=== PATIENT | female | born 1985 | race Caucasian/White ===

== ENCOUNTER 2016-10-18 19:49 | Emergency (ER) | payer SELFPAY ==
[~2016-10-18] VITALS: Ht 165.1 cm; Wt 72.6 kg
[2016-10-18 19:58] VITALS: BP 114/72
[2016-10-18] MEDS ORDERED: silver sulfADIAZINE 1% CREAM 25GM TUBE. TP ONE ×2 (20:11→20:15)
[2016-10-18] MEDS ORDERED: DIPHTH,PERTUSS(ACELL),TET TOX 0.5 ML DISP.SYRIN. VAX IM ONE ×2 (20:12→20:15)
[2016-10-18] MEDS ORDERED: HYDROcodone/APAP 5/325MG 1 TAB TABLET ONE (20:13)
[2016-10-18] MEDS: HYDROcodone/APAP 5/325MG 1 TAB TABLET PO ONE ×2 (20:15→20:20)
[2016-10-18] MEDS ORDERED: SILV20CR14 TP (20:16)
[2016-10-18] MEDS ORDERED: HYDR-971 PO (20:16)
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
== END 2016-10-18 20:38 | disposition home or self-care (01) ==
LOC: ER 19:49
DX: T23.202A Burn of second degree of left hand, unspecified site, initial encounter (principal); X12.XXXA Contact with other hot fluids, initial encounter; Y93.89 Activity, other specified; Y99.8 Other external cause status; Y92.89 Other specified places as the place of occurrence of the external cause
CPT/HCPCS: 16020; 90471; 90715; 99284-25

== ENCOUNTER 2017-10-24 22:55 | Emergency (ER) | payer SELFPAY ==
[2017-10-25 00:30] LABS: BILIRUBIN,URINE NEGATIVE (NEG); GLUCOSE,URINE NEGATIVE (NEG); NITRITE,URINE NEGATIVE (NEG); PROTEIN,URINE NEGATIVE (NEG-TRACE); UROBILINOGEN,URINE 0.2 mg/dL (0.2 mg/dL)
[2017-10-25 00:37] LABS: BACTERIA,URINE MODERATE /HPF (0-FEW); CLARITY,URINE CLEAR; COLOR,URINE YELLOW; RBC,URINE OCC /HPF (0-2); SQUAMOUS EPITHELIAL CELL,UR MOD /LPF
[2017-10-25 00:42] LABS: ADD MAN DIFF? NO
[2017-10-25 00:44] LABS: BASO % 1 % (0-3); EOS % 1 % (0-3); HEMATOCRIT 39.8 % (36.0-47.0); HEMOGLOBIN 13.8 g/dL (12.0-15.5); LYMPH # 2.2 x10^3/uL (1.0-4.8); LYMPH % 35 % (24-48); MEAN CORPUSCULAR HEMOGLOBIN 30 pg (25-35); MEAN CORPUSCULAR HGB CONC 35 g/dL (31-37); MEAN CORPUSCULAR VOLUME 87 fL (79-100); MONO # 0.4 x10^3/uL (0.0-1.1); MONO % 6 % (0-9); NEUT # 3.5 x10^3uL (1.8-7.7); NEUT % 57 % (31-73); PLATELET COUNT 304 x10^3/uL (140-400); RED BLOOD COUNT 4.58 x10^6/uL (3.50-5.40); RED CELL DISTRIBUTION WIDTH 13.2 % (11.5-14.5); WHITE BLOOD COUNT 6.1 x10^3/uL (4.0-11.0)
[2017-10-25] MEDS: IV NORMAL SALINE 1000ML BAG 1,000 ML IV (00:45)
[2017-10-25] MEDS: ONDANSETRON PF 4 MG/2 ML VIAL. IV (00:46)
[2017-10-25] MEDS ORDERED: CONTRAST GIVEN. MC (01:00)
[2017-10-25 01:01] LABS: ANION GAP 12 (6-14); BLOOD UREA NITROGEN 7 mg/dL (7-20); BUN/CREATININE RATIO 10 (6-20); CALCIUM 8.7 mg/dL (8.5-10.1); CARBON DIOXIDE 23 mmol/L (21-32); CHLORIDE 104 mmol/L (98-107); CREATININE 0.7 mg/dL (0.6-1.0); GFR 95.8; GLUCOSE 101 mg/dL (70-99); POTASSIUM 3.9 mmol/L (3.5-5.1); SODIUM 139 mmol/L (136-145)
[2017-10-25 01:05] LABS: ALBUMIN 3.8 g/dL (3.4-5.0); ALK PHOS 64 U/L (46-116); ALT (SGPT) 21 U/L (14-59); AST (SGOT) 19 U/L (15-37); LIPASE 281 U/L (73-393); TOTAL BILIRUBIN 0.7 mg/dL (0.2-1.0); TOTAL PROTEIN 7.7 g/dL (6.4-8.2)
[2017-10-25] MEDS: IOHEXOL 300 MG/ML 100ML VIAL. IV (01:35)
== END 2017-10-25 03:00 | disposition home or self-care (01) ==
LOC: ER 22:55
DX: R10.13 Epigastric pain (principal); R10.31 Right lower quadrant pain; R11.10 Vomiting, unspecified; I48.91 Unspecified atrial fibrillation
CPT/HCPCS: 36415; 74177; 80053; 81001; 83690; 84702; 85025; 87086; 96361; 96374; 99285-25; J2405; J7030; Q9967

== ENCOUNTER 2018-05-02 16:43 | Emergency (ER) | payer SELFPAY ==
[~2018-05-02] VITALS: Ht 165.1 cm; Wt 68.0 kg
[~2018-05-02 16:43] MED LIST: FAMO-63 PO; HYDR-3164 PO; SILV20CR14 TP
[2018-05-02] MEDS ORDERED: ATEN25TA PO (17:47)
[2018-05-02] MEDS ORDERED: IV NORMAL SALINE 1000ML BAG 1,000 ML IV ONE ×2 (19:00→23:00)
[2018-05-02 19:16] LABS: BILIRUBIN,URINE NEGATIVE (NEG); CLARITY,URINE CLEAR; COLOR,URINE YELLOW; NITRITE,URINE NEGATIVE (NEG); PH,URINE 6.5; PROTEIN,URINE NEGATIVE (NEG-TRACE); UROBILINOGEN,URINE 0.2 mg/dL (0.2 mg/dL)
[2018-05-02 19:33] LABS: BACTERIA,URINE MANY /HPF (0-FEW); RBC,URINE RARE /HPF (0-2); SQUAMOUS EPITHELIAL CELL,UR MANY /LPF; WBC,URINE RARE /HPF (0-4)
[2018-05-02 20:00] LABS: U PREG PATIENT NEGATIVE (NEG)
[2018-05-02 21:05] LABS: BASO # 0.1 x10^3/uL (0.0-0.2); BASO % 1 % (0-3); EOS % 0 % (0-3); HEMATOCRIT 37.6 % (36.0-47.0); HEMOGLOBIN 13.2 g/dL (12.0-15.5); LYMPH # 2.2 x10^3/uL (1.0-4.8); LYMPH % 32 % (24-48); MEAN CORPUSCULAR HEMOGLOBIN 32 pg (25-35); MEAN CORPUSCULAR HGB CONC 35 g/dL (31-37); MEAN CORPUSCULAR VOLUME 90 fL (79-100); MONO # 0.4 x10^3/uL (0.0-1.1); MONO % 5 % (0-9); NEUT # 4.2 x10^3uL (1.8-7.7); NEUT % 62 % (31-73); PLATELET COUNT 316 x10^3/uL (140-400); RED BLOOD COUNT 4.21 x10^6/uL (3.50-5.40); RED CELL DISTRIBUTION WIDTH 14.1 % (11.5-14.5); WHITE BLOOD COUNT 6.8 x10^3/uL (4.0-11.0)
[2018-05-02 21:11] LABS: CALCIUM 8.9 mg/dL (8.5-10.1); CREATININE 0.7 mg/dL (0.6-1.0); GFR 95.2; POTASSIUM 3.7 mmol/L (3.5-5.1)
[2018-05-02] MEDS ORDERED: KETOROLAC 30 MG/ML VIAL. IV ONE (23:30)
--- NOTE | 2018-05-02 23:35 | PHYS DOC ---
Past Medical History Past Medical History: A-Fib, Other Additional Past Medical Histor: ULCERS Past Surgical History: No Surgical History Additional Information: Quit in 2017. Alcohol Use: Heavy Additional Information: On this date pt. reports she drinks occasionally. Drug Use: None Adult General Chief Complaint Chief Complaint: DIZZY/LIGHT HEADED HPI HPI Patient is a 33 year old female who presents with feeling lightheaded. Patient has been having symptoms over the last 2-3 days. She has some diminished appetite. She describes generally feeling weak. She had some episode of palpitations which has resolved. She did not have chest pain. She has had some respiratory symptoms including a cough. Denies fever or chills. Review of Systems Review of Systems Constitutional: Denies fever or chills Eyes: Denies change HENT: Denies nasal congestion Respiratory: Denies cough or shortness of breath Cardiovascular: No additional information not addressed in HPI GI: Denies abdominal pain, nausea, vomiting, bloody stools or diarrhea : Denies dysuria or hematuria Musculoskeletal: Denies back pain Integument: Denies rash or skin lesions Neurologic: Denies headache All other systems were reviewed and found to be within normal limits, except as documented in this note. Current Medications Current Medications Current Medications Medications (Trade) Dose Ordered Sig/Anne-Marie Start Time Stop Time Status Last Admin Dose Admin Ketorolac Tromethamine (Toradol 30mg Vial) 30 mg 1X ONCE 05/02/18 23:30 05/02/18 23:31 DC 05/02/18 23:18 30 MG Sodium Chloride 1,000 ml @ 1,000 mls/hr 1X ONCE 05/02/18 23:00 05/02/18 23:59 DC 05/02/18 23:18 1,000 MLS/HR Allergies Allergies Allergies Coded Allergies Type Severity Reaction Last Updated Verified No Known Drug Allergies 10/25/17 No Physical Exam Physical Exam Constitutional: Well developed, well nourished, no acute distress, non-toxic appearance HENT: Normocephalic, atraumatic, bilateral external ears normal, oropharynx moist Eyes: PERRLA, EOMI, conjunctiva normal Neck: Normal range of motion, no tenderness Cardiovascular:Heart rate regular rhythm, no murmur Lungs & Thorax: Bilateral breath sounds clear to auscultation Abdomen: Bowel sounds normal, soft, no tenderness Skin: Warm, dry, no erythema Back: No tenderness Extremities: No tenderness Neurologic: Alert and oriented X 3, normal motor function Psychologic: Affect normal Current Patient Data Vital Signs Vital Signs Date Time Temp Pulse Resp B/P (MAP) Pulse Ox O2 Delivery O2 Flow Rate FiO2 05/02/18 16:57 98.6 106 16 129/81 (97) 99 Room Air 98.6 Lab Values Laboratory Tests Test 05/02/18 18:21 05/02/18 20:45 05/02/18 23:21 Urine Collection Type Unknown Urine Color Yellow Urine Clarity Clear Urine pH 6.5 Urine Specific [place] 1.020 Urine Protein Negative mg/dL (NEG-TRACE) Urine Glucose (UA) Negative mg/dL (NEG) Urine Ketones (Stick) Trace mg/dL (NEG) Urine Blood Large (NEG) Urine Nitrite Negative (NEG) Urine Bilirubin Negative (NEG) Urine Urobilinogen Dipstick 0.2 mg/dL (0.2 mg/dL) Urine Leukocyte Esterase Negative (NEG) Urine RBC Rare /HPF (0-2) Urine WBC Rare /HPF (0-4) Urine Squamous Epithelial Cells Many /LPF Urine Bacteria Many /HPF (0-FEW) Urine Mucus Mod /LPF Urine Test Negative (NEG) White Blood Count 6.8 x10^3/uL (4.0-11.0) Red Blood Count 4.21 x10^6/uL (3.50-5.40) Hemoglobin 13.2 g/dL (12.0-15.5) Hematocrit 37.6 % (36.0-47.0) Mean Corpuscular Volume 90 fL (79-100) Mean Corpuscular Hemoglobin 32 pg (25-35) Mean Corpuscular Hemoglobin Concent 35 g/dL (31-37) Red Cell Distribution Width 14.1 % (11.5-14.5) Platelet Count 316 x10^3/uL (140-400) Neutrophils (%) (Auto) 62 % (31-73) Lymphocytes (%) (Auto) 32 % (24-48) Monocytes (%) (Auto) 5 % (0-9) Eosinophils (%) (Auto) 0 % (0-3) Basophils (%) (Auto) 1 % (0-3) Neutrophils # (Auto) 4.2 x10^3uL (1.8-7.7) Lymphocytes # (Auto) 2.2 x10^3/uL (1.0-4.8) Monocytes # (Auto) 0.4 x10^3/uL (0.0-1.1) Eosinophils # (Auto) 0.0 x10^3/uL (0.0-0.7) Basophils # (Auto) 0.1 x10^3/uL (0.0-0.2) Sodium Level 138 mmol/L (136-145) Potassium Level 3.7 mmol/L (3.5-5.1) Chloride Level 100 mmol/L (98-107) Carbon Dioxide Level 24 mmol/L (21-32) Anion Gap 14 (6-14) Blood Urea Nitrogen 9 mg/dL (7-20) Creatinine 0.7 mg/dL (0.6-1.0) Estimated GFR (Cockcroft-Gault) 95.2 Glucose Level 85 mg/dL (70-99) Calcium Level 8.9 mg/dL (8.5-10.1) Troponin I Quantitative < 0.017 ng/mL (0.000-0.055) Influenza Type A Antigen Negative (NEGATIVE) Influenza Type B Antigen Negative (NEGATIVE) Laboratory Tests 05/02/18 20:45 Laboratory Tests 05/02/18 20:45 EKG EKG No STEMI Interpretation Time: 20:15 Radiology/Procedures Radiology/Procedures [] Course & Med Decision Making Course & Med Decision Making Pertinent Labs and Imaging studies reviewed. (See chart for details) Patient was evaluated in the emergency department for some generalized lightheadedness and nonspecific constitutional symptoms. No abdominal or pelvic pain. No urinary symptoms. She had been having some nausea over the last couple of days as well. In the ER, her workup was essentially negative other than some mild dehydration. She was noted to have ketones in her urine. The urine was otherwise a contaminated sample. She has no urinary symptoms. She was given 2 L normal saline in the emergency department. The rest of her lab panel was unremarkable. Her troponin was not elevated. She did have a very mild tachycardia with heart rate in the upper 90s and low 100s which was stable throughout her IV fluid effusions. Her temperature was 99.7 when rechecked. Patient was feeling much improved after the IV fluids. She was requesting discharge home. Flu screen negative. Dragon Disclaimer Dragon Disclaimer This electronic medical record was generated, in whole or in part, using a voice recognition dictation system. Departure Departure Disposition: HOME, SELF-CARE Condition: GOOD Referrals: NO PCP (PCP) ZEB LIU DO May 02, 2018 23:35
[2018-05-02 23:46] VITALS: BP 143/69
[2018-05-02 23:46] LABS: INFLUENZA A PATIENT NEGATIVE (NEGATIVE); INFLUENZA B PATIENT NEGATIVE (NEGATIVE)
--- NOTE | 2018-05-03 06:53 | EKG ---
[facility] [address] [place] [address] Test Date: 2018-05-02 Test Time: 20:14:04 Pat Name: BECK URIBE Department: Room: Gender: F [employer] Operator: : 1985 Requested By: ZEB LIU Order Number: [id number] Reading MD: Jono Gann Measurements Intervals [place] Rate: 87 P: 32 CA: 124 QRS: 34 QRSD: 74 T: 21 QT: 344 QTc: 414 Interpretive Statements SINUS RHYTHM NORMAL ECG No previous ECG available for comparison Electronically Signed On 05-10-2018 10:53:20 [employer]SEM[employer] by Jono Gann
== END 2018-05-03 00:14 | disposition home or self-care (01) ==
LOC: ER 16:43
DX: R42 Dizziness and giddiness (principal); R11.0 Nausea; I48.91 Unspecified atrial fibrillation
CPT/HCPCS: 36415; 80048; 81001; 81025; 84484; 85025; 87804; 93005; 96361; 96374; 99284; J1885; J7030

== ENCOUNTER 2020-10-22 14:27 | Emergency (ER) | payer SELFPAY ==
[~2020-10-22] VITALS: Ht 165.1 cm; Wt 84.0 kg
[~2020-10-22 14:27] MED LIST changes: +ATEN25TA PO
[2020-10-22] MEDS ORDERED: METO50TA6 PO (14:56)
--- NOTE | 2020-10-22 14:57 | ED.ADGEN ---
Past Medical History Past Medical History: A-Fib, Other Additional Past Medical Histor: ULCERS Past Surgical History: No Surgical History Smoking Status: Former Smoker Alcohol Use: Heavy Drug Use: None General Adult EDM: Chief Complaint: MEDICATION REFILL HPI: HPI: Patient is a 35 year old AA female who presents emergency department with request for medication refill. Patient states that she takes 50 mg of meto prolol tartrate twice a day for tachycardia. She states that she took her last pill yesterday. At this time the patient does not have a primary care doctor. She denies any chest pain, palpitations, shortness of breath, fever, cough, nasal congestion, headache, numbness, tingling, weakness, abdominal pain, nausea, vomiting, diarrhea, dysuria, hematuria, or back pain. She currently denies any pain. Review of Systems: Review of Systems: Complete ROS is negative unless otherwise noted in HPI. Allergies: Allergies: Allergies Coded Allergies Type Severity Reaction Last Updated Verified No Known Drug Allergies 10/25/17 No Physical Exam: PE: See Above Constitutional: Well developed, well nourished, no acute distress, non-toxic appearance. [] HENT: Normocephalic, atraumatic, bilateral external ears normal, nose normal. [] Eyes: PERRLA, EOMI, conjunctiva normal, no discharge. [] Neck: Normal range of motion, no stridor. [] Cardiovascular:Heart rate regular rhythm Lungs & Thorax: Respirations even and unlabored, no retractions, no respiratory distress Abdomen: soft, no tenderness Skin: Warm, dry, no erythema, no rash. [] Extremities: No cyanosis, ROM intact, no edema. [] Neurologic: Alert and oriented X 3, no focal deficits noted. [] Psychologic: Affect normal, judgement normal, mood normal. [] Current Patient Data: Vital Signs: Vital Signs Date Time Temp Pulse Resp B/P (MAP) Pulse Ox O2 Delivery O2 Flow Rate FiO2 10/22/20 14:36 98.0 92 18 131/78 (95) 100 Room Air 98.0 EKG: EKG: [] Heart Score: C/O Chest Pain: No Risk Scores: Score 0 - 3: 2.5% MACE over next 6 weeks - Discharge Home Score 4 - 6: 20.3% MACE over next 6 weeks - Admit for Clinical Observation Score 7 - 10: 72.7% MACE over next 6 weeks - Early Invasive Strategies Radiology/Procedures: Radiology/Procedures: [] Course & Med Decision Making: Course & Med Decision Making Pertinent Labs and Imaging studies reviewed. (See chart for details) [][] Patients Care and treatment plan provided by ER Nurse Practitioner. I was available for consult. Patient's chart reviewed. Dimitry Disclaimer: Dimitry Disclaimer: This electronic medical record was generated, in whole or in part, using a voice recognition dictation system. Departure Departure Impression: Primary Impression: Medication refill Disposition: HOME / SELF CARE / HOMELESS Condition: STABLE Referrals: NO PCP (PCP) Patient Instructions: Medication Refill, Emergency Department Additional Instructions: Fill the prescription and use it as directed. Follow-up with a primary care doctor for future refills of this medication. Return to the ER for worsening symptoms. [facility] [address] [place] [address] [facility] [address] [place] [address] [facility] [address] [facility] [place] [address] [facility] [address] [place] [address] [facility] [address] [place] [address] [facility] [address] [place] [address] [facility] [address] [place] [address] [facility] [address] [place] [address] [facility] [address] [place] [address] [facility] [address] [place] [address] Scripts Metoprolol Tartrate (METOPROLOL TARTRATE) 50 Mg Tablet 1 TAB PO BID for 30 Days, #60 TAB 0 Refills Prov: ERIKA ARAUJO APRN 10/22/20 ERIKA ARAUJO APRN Oct 22, 2020 14:57 PAPITO SHANKAR DO Oct 26, 2020 18:24
== END 2020-10-22 15:00 | disposition home or self-care (01) ==
LOC: ER 14:27
DX: R00.0 Tachycardia, unspecified (principal); Z76.0 Encounter for issue of repeat prescription; I48.91 Unspecified atrial fibrillation; Z87.891 Personal history of nicotine dependence
CPT/HCPCS: 99281

== ENCOUNTER 2020-11-10 22:41 | Emergency (ER) | payer SELFPAY ==
[~2020-11-10] VITALS: Ht 162.6 cm; Wt 84.0 kg
[~2020-11-10 22:41] MED LIST changes: +METO50TA6 PO
[2020-11-11 00:58] VITALS: BP 140/91
[2020-11-11 01:02] LABS: BILIRUBIN,URINE NEGATIVE (NEG); CLARITY,URINE TURBID; COLOR,URINE YELLOW; NITRITE,URINE NEGATIVE (NEG); PH,URINE 5.5 (<5.0-8.0); PROTEIN,URINE 100 mg/dL (NEG-TRACE); UROBILINOGEN,URINE 0.2 mg/dL (0.2 mg/dL)
[2020-11-11 01:12] LABS: BACTERIA,URINE MODERATE /HPF (0-FEW); WBC,URINE TNTC /HPF (0-4)
[2020-11-11] MEDS ORDERED: PHEN-318 PO (01:26)
[2020-11-11] MEDS ORDERED: CEPH500T PO (01:26)
--- NOTE | 2020-11-11 01:27 | PHYS DOC ---
Past Medical History Past Medical History: A-Fib, Hypertension, Other Additional Past Medical Histor: ULCERS, SVT Past Surgical History: No Surgical History Smoking Status: Former Smoker Alcohol Use: Heavy Drug Use: None General Adult EDM: Chief Complaint: PAIN ON URINATION HPI: HPI: Patient is a 35 year old female who presents emergency department who reports a 3-day history of increased urinary frequency with urinary pressure, patient states she has not had a urinary tract infection in the long time but she says this feels very similar to her last one. Patient denies any vaginal discharge, rashes to her vaginal area, denies STI concerns. Patient reports her last menstrual cycle ended Tuesday. Patient denies any allergies to medications, states she takes metoprolol for heart rate control, reports her primary care physician is at . Patient denies any shortness of breath, rash to her skin, chest congestion, recent fever or chills, dizziness or visual changes. Patient denies any other physical complaints or physical concerns. Review of Systems: Review of Systems: 14 body systems of review of systems have been reviewed. See HPI for pertinent positives and negative responses, otherwise all other systems are negative, nonpertinent or noncontributory. Heart Score: C/O Chest Pain: No Risk Factors: Risk Factors: DM, Current or recent (<one month) smoker, HTN, HLP, family history of CAD, obesity. Risk Scores: Score 0 - 3: 2.5% MACE over next 6 weeks - Discharge Home Score 4 - 6: 20.3% MACE over next 6 weeks - Admit for Clinical Observation Score 7 - 10: 72.7% MACE over next 6 weeks - Early Invasive Strategies Allergies: Allergies: Allergies Coded Allergies Type Severity Reaction Last Updated Verified No Known Drug Allergies 10/25/17 No Physical Exam: PE: Constitutional: Well developed, well nourished, no acute distress, non-toxic appearance. 35-year-old female in no apparent distress. HENT: Normocephalic, atraumatic. Eyes: Conjunctiva normal, no discharge. Neck: Normal range of motion, no stridor. Cardiovascular: No cyanosis appreciated, distal cap refill less than 2 seconds. Lungs & Thorax: Patient is in no respiratory distress, no audible adventitious lung sounds appreciated. Abdomen: Nontender, no abnormalities noted. Skin: Warm, dry, no erythema, no rash. Back: No tenderness, no deformities. Extremities: No tenderness, no cyanosis, no clubbing, ROM intact, no edema. Neurologic: Alert and oriented X 3, normal motor function, normal sensory function, no focal deficits noted. Psychologic: Affect normal, judgement normal, mood normal. Current Patient Data: Labs: Laboratory Tests Test 11/10/20 22:52 11/10/20 23:17 Urine Collection Type Unknown Urine Color Yellow Urine Clarity Turbid Urine pH 5.5 (<5.0-8.0) Urine Specific [place] 1.025 (1.000-1.030) Urine Protein 100 mg/dL (NEG-TRACE) Urine Glucose (UA) Negative mg/dL (NEG) Urine Ketones (Stick) Trace mg/dL (NEG) Urine Blood Large (NEG) Urine Nitrite Negative (NEG) Urine Bilirubin Negative (NEG) Urine Urobilinogen Dipstick 0.2 mg/dL (0.2 mg/dL) Urine Leukocyte Esterase Large (NEG) Urine RBC 6-10 /HPF (0-2) Urine WBC Tntc /HPF (0-4) Urine Squamous Epithelial Cells Few /LPF Urine Bacteria Moderate /HPF (0-FEW) Urine Mucus Mod /LPF POC Urine HCG, Qualitative Hcg negative (Negative) Vital Signs: Vital Signs Date Time Temp Pulse Resp B/P (MAP) Pulse Ox O2 Delivery O2 Flow Rate FiO2 11/11/20 00:58 98.2 109 20 140/91 (107) 99 Room Air 98.2 EKG: EKG: [] Radiology/Procedures: Radiology/Procedures: [] Course & Med Decision Making: Course & Med Decision Making Pertinent Labs and Imaging studies reviewed. (See chart for details) 35-year-old female, vital signs reviewed, presents emergency department chief complaint with urinary tract infection signs and symptoms. Physical presentation and explanation of events consistent with simple cystitis. A urinalysis assay and urine test was ordered. The patient was not per urine test, her urine showed infectious process with hematuria. Will give first dose of Keflex in ED today along with first dose of Pyridium for urinary pressure and pain. Discussed findings with patient, patient gave verbal understanding of discharge home instructions, antibiotic use, follow-up with PCP this week for ongoing symptoms, return to ER precautions and concerns, patient had no further questions or concerns and was discharged home without incident. Dimitry Disclaimer: Dimitry Disclaimer: This electronic medical record was generated, in whole or in part, using a voice recognition dictation system. Departure Departure Impression: Primary Impression: Urinary tract infection Qualified Codes: N30.01 - Acute cystitis with hematuria Disposition: HOME / SELF CARE / HOMELESS Condition: GOOD Referrals: NO PCP (PCP) Patient Instructions: Urinary Tract Infection Additional Instructions: You were seen today in the emergency department for urinary tract infection signs and symptoms. Your urine did show that you do have a urinary tract infection. I have started you on your antibiotic tonight, I am sending your prescriptions to the [facility] on as you requested. Please fill them and take as directed until completed. Please follow-up with your primary care physician at for ongoing symptoms. Please return to the emergency department for worsening symptoms or other concerns. It was a pleasure taking care of you today in the emergency department and thank you for allowing me to participate in your emergency room care. EMERGENCY DEPARTMENT GENERAL DISCHARGE INSTRUCTIONS Thank you for coming to [facility] Emergency Department (ED) today and trusting us with you care. We trust that you had a positive experience in our Emergency Department. If you wish to speak to the department management, you may call the Director at [phone]. YOUR FOLLOW UP INSTRUCTIONS ARE FOLLOWS: 1. Do you have a private Doctor? If you do not have a private doctor, please ask for a resource list of physicians or clinics that may be able to assist you with follow up care. 2. The Emergency Physicain has interpreted your x-rays. The X-Ray specialist will also review them. If there is a change in the findings, you will be notified in 48 hours when at all possible. 3. A lab test or culture has been done, your results will be reviewed and you will be notified if you need a change in treatment. ADDITIONAL INSTRUCTIONS AND INFORMATION: 1. Your care today has been supervised by a physician who is specially trained in emergency care. Many problems require more than one evaluation for a complete diagnosis and treatment. We recommend that you schedule your follow up appointment as recommended to ensure complete treatment of you illness or injury. If you are unable to obtain follow up care and continue to have a problem, or if your condition worsens, we recommend that you return to the ED. 2. We are not able to safely determine your condition over the phone nor are we able to give sound medical advice over the phone. For these safety reasons, if you call for medical advice we will ask you to come to the ED for further evaluation. 3. If you have any questions regarding these discharge instructions please call the ED at [phone]. SAFETY INFORMATION: In the interest of safety, wellness, and injury prevention; we encourage you to wear your sealbelt, if you smoke; quite smoking, and we encourage family to use a protective helmet for bicycling and other sporting events that present an increased risk for head injury. IF YOUR SYMPTOMS WORSEN OR NEW SYMPTOMS DEVELOP, OR YOU HAVE CONCERNS ABOUT YOUR CONDITION; OR IF YOUR CONDITION WORSENS WHILE YOU ARE WAITING FOR YOUR FOLLOW UP APPO INTMENT; EITHER CONTACT YOUR PRIMARY CARE DOCTOR, THE PHYSICIAN WHOSE NAME AND NUMBER YOU WERE GIVEN, OR RETURN TO THE ED IMMEDIATELY. Scripts Phenazopyridine Hcl (PYRIDIUM) 200 Mg Tablet 1 TAB PO TID for urinary discomfort for 2 Days, #6 TAB 0 Refills Prov: GAEL CARMONA APRN 11/11/20 Cephalexin (CEPHALEXIN) 500 Mg Tablet 1 TAB PO BID for uti for 7 Days, #14 TAB 0 Refills Prov: GAEL CARMONA APRN 11/11/20 GAEL CARMONA APRN Nov 11, 2020 01:27
[2020-11-11] MEDS ORDERED: PHENAZOPYRIDINE 200 MG TABLET. PO ONE (02:00)
[2020-11-11] MEDS ORDERED: CEPHALEXIN 250 MG CAPSULE. PO ONE (02:00)
== END 2020-11-11 02:02 | disposition home or self-care (01) ==
LOC: ER 22:41
DX: N30.01 Acute cystitis with hematuria (principal); I10 Essential (primary) hypertension; I48.91 Unspecified atrial fibrillation; Z87.891 Personal history of nicotine dependence; F10.20 Alcohol dependence, uncomplicated; Y90.9 Presence of alcohol in blood, level not specified
CPT/HCPCS: 81001; 81025; 87086; 99283

== ENCOUNTER 2021-03-17 23:27 | Emergency (ER) | payer SELFPAY ==
[~2021-03-17] VITALS: Ht 165.1 cm; Wt 83.0 kg
[~2021-03-17 23:27] MED LIST changes: +CEPH500T PO; +PHEN-318 PO
[2021-03-17] MEDS ORDERED: METOCLOPRAMIDE HCL 10 MG/2 ML VIAL. IVP ONE (23:45)
[2021-03-17] MEDS ORDERED: FAMOTIDINE 20 MG/2 ML VIAL IVP ONE (23:45)
[2021-03-18 00:19] LABS: CALCIUM 8.4 mg/dL (8.5-10.1); CREATININE 0.8 mg/dL (0.6-1.0); GFR 80.3; POTASSIUM 3.9 mmol/L (3.5-5.1)
[2021-03-18 00:25] LABS: ALBUMIN 3.7 g/dL (3.4-5.0); ALBUMIN/GLOBULIN RATIO 0.8 (1.0-1.7); TOTAL BILIRUBIN 0.3 mg/dL (0.2-1.0); TOTAL PROTEIN 8.1 g/dL (6.4-8.2)
[2021-03-18] MEDS ORDERED: HALOPERIDOL LACTATE 5 MG/ML VIAL. IVP ONE (00:30)
[2021-03-18 00:44] LABS: BILIRUBIN,URINE NEGATIVE (NEG); CLARITY,URINE CLEAR; COLOR,URINE YELLOW; NITRITE,URINE NEGATIVE (NEG); PROTEIN,URINE NEGATIVE (NEG-TRACE); UROBILINOGEN,URINE 0.2 mg/dL (0.2 mg/dL)
[2021-03-18 00:51] LABS: BARBITURATES NEG (NEG); BENZODIAZEPINES NEG (NEG); CANNABINOIDS NEG (NEG); COCAINE NEG (NEG); METHADONE NEG (NEG); OPIATES NEG (NEG); PHENCYCLIDINE NEG (NEG)
[2021-03-18 00:52] LABS: BACTERIA,URINE 0 /HPF (0-FEW); TRICHOMONAS,URINE PRESENT
[2021-03-18 00:53] LABS: AMPHETAMINE/METHAMPHETAMINE NEG (NEG)
[2021-03-18 00:55] LABS: U PREG PATIENT NEGATIVE (NEG)
[2021-03-18 01:13] LABS: BASO % 1 % (0-3); EOS % 1 % (0-3); HEMATOCRIT 36.8 % (36.0-47.0); HEMOGLOBIN 12.5 g/dL (12.0-15.5); LYMPH # 1.6 x10^3/uL (1.0-4.8); LYMPH % 17 % (24-48); MEAN CORPUSCULAR HEMOGLOBIN 28 pg (25-35); MEAN CORPUSCULAR HGB CONC 34 g/dL (31-37); MEAN CORPUSCULAR VOLUME 84 fL (79-100); MONO # 0.4 x10^3/uL (0.0-1.1); MONO % 4 % (0-9); NEUT # 7.3 x10^3/uL (1.8-7.7); NEUT % 78 % (31-73); PLATELET COUNT 338 x10^3/uL (140-400); WHITE BLOOD COUNT 9.3 x10^3/uL (4.0-11.0)
--- NOTE | 2021-03-18 01:59 | PHYS DOC ---
Past Medical History Past Medical History: A-Fib, Hypertension, Other Additional Past Medical Histor: ULCERS, SVT Past Surgical History: No Surgical History Smoking Status: Former Smoker Alcohol Use: Heavy Drug Use: None General Adult EDM: Chief Complaint: NAUSEA/VOMITING/DIARRHEA HPI: HPI: 36 yo F PMH HTN and "tachycardia," (takes metoprolol) since the ED brought in by EMS with complaints of epigastric abdominal pain with nausea and vomiting. Reports she smoked marijuana last night, no history of cannabinoid hyperemesis syndrome. No associated diarrhea, dark or red stools. Patient was given Zofran by EMS. Review of Systems: Review of Systems: Constitutional: Denies fever or chills. [] Eyes: Denies change in visual acuity. [] HENT: Denies nasal congestion or sore throat. [] Respiratory: Denies cough or shortness of breath. [] Cardiovascular: Denies chest pain or edema. [] GI: Denies bloody stools or diarrhea. [] : Denies dysuria or vaginal bleeding Musculoskeletal: Denies back pain or joint pain. [] Integument: Denies rash or diaphoresis Neurologic: Denies headache, focal weakness or sensory changes. [] Endocrine: Denies polyuria or polydipsia. [] Lymphatic: Denies swollen glands. [] Psychiatric: Denies depression or anxiety. [] Heart Score: C/O Chest Pain: No Risk Factors: Risk Factors: DM, Current or recent (<one month) smoker, HTN, HLP, family history of CAD, obesity. Risk Scores: Score 0 - 3: 2.5% MACE over next 6 weeks - Discharge Home Score 4 - 6: 20.3% MACE over next 6 weeks - Admit for Clinical Observation Score 7 - 10: 72.7% MACE over next 6 weeks - Early Invasive Strategies Current Medications: Current Medications Medications (Trade) Dose Ordered Sig/Anne-Marie Start Time Stop Time Status Last Admin Dose Admin Famotidine (Pepcid Vial) 20 mg 1X ONCE 03/17/21 23:45 03/17/21 23:46 DC 03/18/21 00:03 20 MG Haloperidol Lactate (Haldol Inj) 5 mg 1X ONCE 03/18/21 00:30 03/18/21 00:31 DC Metoclopramide HCl (Reglan Vial) 10 mg 1X ONCE 03/17/21 23:45 03/17/21 23:46 DC 03/18/21 00:04 10 MG Allergies: Allergies: Allergies Coded Allergies Type Severity Reaction Last Updated Verified No Known Drug Allergies 10/25/17 No Physical Exam: PE: Constitutional: Well developed, well nourished, no acute distress, non-toxic appearance. HENT: Normocephalic, atraumatic, Eyes: EOMI, conjunctiva normal, no discharge. Neck: Normal range of motion, supple, Cardiovascular: S1/2 present, regular rhythm Lungs & Thorax: Speaking in full sentences, bilateral equal chest rise, no tachypnea or increased work of breathing Abdomen: soft, no tenderness on exam-patient reports resolution of symptoms after Pepcid and Reglan given Skin: Warm, dry, no erythema, no rash. [] Back: No tenderness, no CVA tenderness. [] Extremities: No tenderness, no cyanosis, no lower extremity edema Neurologic: Alert and oriented X 3, normal motor function, normal sensory fun ction, no focal deficits noted. [] Psychologic: Affect normal, judgement normal, mood normal. [] Current Patient Data: Labs: Laboratory Tests Test 03/17/21 23:59 03/18/21 00:37 03/18/21 01:05 Sodium Level 139 mmol/L (136-145) Potassium Level 3.9 mmol/L (3.5-5.1) Chloride Level 105 mmol/L (98-107) Carbon Dioxide Level 23 mmol/L (21-32) Anion Gap 11 (6-14) Blood Urea Nitrogen 10 mg/dL (7-20) Creatinine 0.8 mg/dL (0.6-1.0) Estimated GFR (Cockcroft-Gault) 80.3 BUN/Creatinine Ratio 13 (6-20) Glucose Level 103 mg/dL (70-99) H Calcium Level 8.4 mg/dL (8.5-10.1) L Magnesium Level 2.0 mg/dL (1.8-2.4) Total Bilirubin 0.3 mg/dL (0.2-1.0) Aspartate Amino Transferase (AST) 15 U/L (15-37) Alanine Aminotransferase (ALT) 24 U/L (14-59) Alkaline Phosphatase 82 U/L (46-116) Total Protein 8.1 g/dL (6.4-8.2) Albumin 3.7 g/dL (3.4-5.0) Albumin/Globulin Ratio 0.8 (1.0-1.7) L Urine Collection Type Unknown Urine Color Yellow Urine Clarity Clear Urine pH 8.0 (<5.0-8.0) Urine Specific Eagle 1.015 (1.000-1.030) Urine Protein Negative mg/dL (NEG-TRACE) Urine Glucose (UA) Negative mg/dL (NEG) Urine Ketones (Stick) Trace mg/dL (NEG) Urine Blood Negative (NEG) Urine Nitrite Negative (NEG) Urine Bilirubin Negative (NEG) Urine Urobilinogen Dipstick 0.2 mg/dL (0.2 mg/dL) Urine Leukocyte Esterase Small (NEG) Urine RBC 3-5 /HPF (0-2) Urine WBC 5-10 /HPF (0-4) Urine Squamous Epithelial Cells Few /LPF Urine Bacteria 0 /HPF (0-FEW) Urine Trichomonas Present Urine Test Negative (NEG) Urine Opiates Screen Neg (NEG) Urine Methadone Screen Neg (NEG) Urine Barbiturates Neg (NEG) Urine Phencyclidine Screen Neg (NEG) Urine Amphetamine/Methamphetamine Neg (NEG) Urine Benzodiazepines Screen Neg (NEG) Urine Cocaine Screen Neg (NEG) Urine Cannabinoids Screen Neg (NEG) Urine Ethyl Alcohol Pos (NEG) White Blood Count 9.3 x10^3/uL (4.0-11.0) Red Blood Count 4.40 x10^6/uL (3.50-5.40) Hemoglobin 12.5 g/dL (12.0-15.5) Hematocrit 36.8 % (36.0-47.0) Mean Corpuscular Volume 84 fL (79-100) Mean Corpuscular Hemoglobin 28 pg (25-35) Mean Corpuscular Hemoglobin Concent 34 g/dL (31-37) Red Cell Distribution Width 17.0 % (11.5-14.5) H Platelet Count 338 x10^3/uL (140-400) Neutrophils (%) (Auto) 78 % (31-73) H Lymphocytes (%) (Auto) 17 % (24-48) L Monocytes (%) (Auto) 4 % (0-9) Eosinophils (%) (Auto) 1 % (0-3) Basophils (%) (Auto) 1 % (0-3) Neutrophils # (Auto) 7.3 x10^3/uL (1.8-7.7) Lymphocytes # (Auto) 1.6 x10^3/uL (1.0-4.8) Monocytes # (Auto) 0.4 x10^3/uL (0.0-1.1) Eosinophils # (Auto) 0.0 x10^3/uL (0.0-0.7) Basophils # (Auto) 0.0 x10^3/uL (0.0-0.2) Laboratory Tests 03/18/21 01:05 Laboratory Tests 03/17/21 23:59 Vital Signs: Vital Signs Date Time Temp Pulse Resp B/P (MAP) Pulse Ox O2 Delivery O2 Flow Rate FiO2 03/17/21 23:35 97.9 92 18 129/69 (89) 99 97.9 EKG: EKG: [] Radiology/Procedures: Radiology/Procedures: [] Course & Med Decision Making: Course & Med Decision Making Pertinent Labs and Imaging studies reviewed. (See chart for details) Concern for upper abdominal pain in the setting of nausea and vomiting. Patient with relief quickly after ED arrival and meds given. Patient with no abdominal pain. Patient resting comfortably in ED stretcher and is hemodynamically stable. Urine alcohol positive-pt is clinically sober with steady gait and medical decision making capacity. Labs are otherwise unremarkable. Will di scharge home with strict ED return precautions were given for abdominal pain, intractable nausea or vomiting or dehydration. Encouraged urgent outpatient follow-up with PMD. Life-threatening processes were considered but are low suspicion at this time, given history, physical exam and ED workup. Pt was educated on all prescription medications and adverse effects. All patient's questions were answered and pt was stable at time of discharge. Life/limb-threatening differential includes but is not limited to, acute coronary syndrome/myocardial infarction, Boerhaave's, DKA, gastrointestinal blee ding, intracranial hemorrhage, ischemic bowel, meningitis, sepsis, surgical abdomen (AAA), toxidrome (drug over/overdose/carbon monoxide, etc), ovarian/testicular torsion, trauma, or infection/sepsis. I have spoken with the patient and/or caregivers. I explained the patient's condition, diagnoses and treatment plan based on the information available to me at this time. I have answered the patient and/or caregiver's questions and addressed any concerns. The patient and/or caregivers have a good understanding of patient's diagnosis, condition and treatment plan as can be expected at this point. Vital signs have been stable. Patient's condition is stable and appropriate for discharge from the emergency department. Patient will pursue further outpatient evaluation with primary care physician or other designated or consulting physician as outlined in the discharge instructions. The patient and/or caregivers are agreeable to this plan of care and follow-up instructions have been explained in detail. The patient and/or caregivers have received these instructions in written form and have expressed an understanding of the discharge instructions. The patient and/or caregivers are aware that any significant change of condition or worsening of symptoms should prompt immediate return to this or the closest emergency department or call to 1. Dimitry Disclaimer: Dimitry Disclaimer: This electronic medical record was generated, in whole or in part, using a voice recognition dictation system. Departure Departure Impression: Primary Impression: Nausea & vomiting Disposition: 01 HOME / SELF CARE / HOMELESS Condition: STABLE Referrals: NO PCP (PCP) Follow-up with your primary care physician in 24 to 48 hours OR FOLLOW UP WITH FAMILY MEDICINE: [address], [address] [place] [address] Patient Instructions: Nausea and Vomiting Additional Instructions: EMERGENCY DEPARTMENT GENERAL DISCHARGE INSTRUCTIONS Thank you for coming to [facility] Emergency Department (ED) today and trusting us with you care. We trust that you had a positive experience in our Emergency Department. If you wish to speak to the department management, you may call the Director at [phone]. YOUR FOLLOW UP INSTRUCTIONS ARE FOLLOWS: 1. Do you have a private Doctor? If you do not have a private doctor, please ask for a resource list of physicians or clinics that may be able to assist you with follow up care. 2. The Emergency Physicain has interpreted your x-rays. The X-Ray specialist will also review them. If there is a change in the findings, you will be notified in 48 hours when at all possible. 3. A lab test or culture has been done, your results will be reviewed and you will be notified if you need a change in treatment. ADDITIONAL INSTRUCTIONS AND INFORMATION: 1. Your care today has been supervised by a physician who is specially trained in emergency care. Many problems require more than one evaluation for a complete diagnosis and treatment. We recommend that you schedule your follow up appointment as recommended to ensure complete treatment of you illness or injury. If you are unable to obtain follow up care and continue to have a problem, or if your condition worsens, we recommend that you return to the ED. 2. We are not able to safely determine your condition over the phone nor are we able to give sound medical advice over the phone. For these safety reasons, if you call for medical advice we will ask you to come to the ED for further evaluation. 3. If you have any questions regarding these discharge instructions please call the ED at [phone]. SAFETY INFORMATION: In the interest of safety, wellness, and injury prevention; we encourage you to wear your sealbelt, if you smoke; quite smoking, and we encourage family to use a protective helmet for bicycling and other sporting events that present an increased risk for head injury. IF YOUR SYMPTOMS WORSEN OR NEW SYMPTOMS DEVELOP, OR YOU HAVE CONCERNS ABOUT YOUR CONDITION; OR IF YOUR CONDITION WORSENS WHILE YOU ARE WAITING FOR YOUR FOLLOW UP APPOINTMENT; EITHER CONTACT YOUR PRIMARY CARE DOCTOR, THE PHYSICIAN WHOSE NAME AND NUMBER YOU WERE GIVEN, OR RETURN TO THE ED IMMEDIATELY. FRANCES MARTINEZ DO Mar 18, 2021 01:59
[2021-03-18 02:30] VITALS: BP 13/79
== END 2021-03-18 02:30 | disposition home or self-care (01) ==
LOC: ER 23:27
DX: R11.2 Nausea with vomiting, unspecified (principal); R10.13 Epigastric pain; I10 Essential (primary) hypertension; I48.91 Unspecified atrial fibrillation; Z87.891 Personal history of nicotine dependence; F10.20 Alcohol dependence, uncomplicated; Y90.1 Blood alcohol level of 20-39 mg/100 ml
CPT/HCPCS: 36415; 80053; 80307; 81001; 81025; 83735; 85025; 87086; 96374; 96375; 99285; G0480; J2765; J3490

== ENCOUNTER 2021-06-14 10:16 | Inpatient (IN) | payer OTHER ==
[~2021-06-14] VITALS: Ht 165.1 cm; Wt 92.0 kg
[2021-06-14] MEDS ORDERED: IV NORMAL SALINE 1000ML BAG 1,000 ML IV SCH (10:30)
[2021-06-14] MEDS ORDERED: METOPROLOL TART IMMED RELEASE 50 MG TABLET. PO ONE (10:45)
[2021-06-14] MEDS ORDERED: ASPIRIN 325 MG TABLET PO ONE (10:45)
[2021-06-14 10:51] LABS: BASO # 0.1 x10^3/uL (0.0-0.2); BASO % 1 % (0-3); EOS # 0.1 x10^3/uL (0.0-0.7); EOS % 1 % (0-3); HEMATOCRIT 35.6 % (36.0-47.0); LYMPH # 2.7 x10^3/uL (1.0-4.8); LYMPH % 50 % (24-48); MEAN CORPUSCULAR HEMOGLOBIN 27 pg (25-35); MEAN CORPUSCULAR HGB CONC 34 g/dL (31-37); MEAN CORPUSCULAR VOLUME 81 fL (79-100); MONO # 0.4 x10^3/uL (0.0-1.1); MONO % 8 % (0-9); NEUT # 2.2 x10^3/uL (1.8-7.7); NEUT % 40 % (31-73); PLATELET COUNT 321 x10^3/uL (140-400); RED CELL DISTRIBUTION WIDTH 15.6 % (11.5-14.5); WHITE BLOOD COUNT 5.4 x10^3/uL (4.0-11.0)
--- NOTE | 2021-06-14 10:56 | PHYS DOC ---
Past Medical History Past Medical History: A-Fib, Hypertension, Other Additional Past Medical Histor: ULCERS, SVT Past Surgical History: No Surgical History Smoking Status: Never Smoker Alcohol Use: Heavy Drug Use: None General Adult EDM: Chief Complaint: RAPID HEART RATE HPI: HPI: Patient is a 36 year old female who presents with 5 days of being out of her metoprolol 50 mg twice daily. She takes this for tachycardia and hypertension. She states since she has been out she has been having a racing heart beat with shortness of air and some chest pain. She states that she just got her insurance this past . She states is been a long time since she is had insurance and cannot remember what doctors that she was seen at [facility]. She states she usually just comes to the ER and gets medication refill. Patient denies dizziness, headache, nausea, vomiting, abdominal pain, syncope, numbness or tingling, focal weakness, fever, cough, diarrhea, extremity swelling. She rates her chest discomfort at 5 out of 10. She has a history of SVT, A. fib, hypertension and GERD. Review of Systems: Review of Systems: Constitutional: Denies fever or chills. [] Eyes: Denies change in visual acuity. [] HENT: Denies nasal congestion or sore throat. [] Respiratory: Denies cough or +shortness of breath. [] Cardiovascular: + chest pain or denies edema. + Racing heartbeat [] GI: Denies abdominal pain, nausea, vomiting, bloody stools or diarrhea. [] : Denies dysuria. [] Musculoskeletal: Denies back pain or joint pain. [] Integument: Denies rash. [] Neurologic: Denies headache, focal weakness or sensory changes. [] Endocrine: Denies polyuria or polydipsia. [] Lymphatic: Denies swollen glands. [] Psychiatric: Denies depression or anxiety. [] Heart Score: C/O Chest Pain: Yes HEART Score for Chest Pain: HEART Score for Chest Pain Response (Comments) Value History Slighlty/Non-Suspicious 0 ECG Nonspecific Repolarizatio 1 Age < 45 0 Risk Factors 1 or 2 Risk Factors 1 Troponin < Normal Limit 0 Total 2 Risk Factors: Risk Factors: DM, Current or recent (<one month) smoker, HTN, HLP, family history of CAD, obesity. Risk Scores: Score 0 - 3: 2.5% MACE over next 6 weeks - Discharge Home Score 4 - 6: 20.3% MACE over next 6 weeks - Admit for Clinical Observation Score 7 - 10: 72.7% MACE over next 6 weeks - Early Invasive Strategies Current Medications: Current Medications Medications (Trade) Dose Ordered Sig/Anne-Marie Start Time Stop Time Status Last Admin Dose Admin Aspirin (Griselda Aspirin) 325 mg 1X ONCE 06/14/21 10:45 06/14/21 10:46 DC Metoprolol Tartrate (Lopressor) 50 mg 1X ONCE 06/14/21 10:45 06/14/21 10:46 DC Sodium Chloride 1,000 ml @ 1,000 mls/hr Q1H 06/14/21 10:30 06/14/21 11:29 Allergies: Allergies: Allergies Coded Allergies Type Severity Reaction Last Updated Verified No Known Drug Allergies 10/25/17 No Physical Exam: PE: Constitutional: Well developed, well nourished, no acute distress, non-toxic ap pearance. [] HENT: Normocephalic, atraumatic, bilateral external ears normal, oropharynx moist, no oral exudates, nose normal. [] Eyes: PERRLA, EOMI, conjunctiva normal, no discharge. [] Neck: Normal range of motion, no tenderness, supple, no stridor. [] Cardiovascular:Heart rate regular tachycardia rhythm, no murmur [] Lungs & Thorax: Bilateral breath sounds clear to auscultation [] Abdomen: Bowel sounds normal, soft, no tenderness, no masses, no pulsatile masses. [] Skin: Warm, dry, no erythema, no rash. [] Back: No tenderness, no CVA tenderness. [] Extremities: No tenderness, no cyanosis, no clubbing, ROM intact, no edema. [] Neurologic: Alert and oriented X 3, normal motor function, normal sensory function, no focal deficits noted. [] Psychologic: Affect normal, judgement normal, mood normal. [] Current Patient Data: Vital Signs: Vital Signs Date Time Temp Pulse Resp B/P (MAP) Pulse Ox O2 Delivery O2 Flow Rate FiO2 06/14/21 10:22 98.1 125 20 140/94 (109) 100 Room Air 98.1 EKG: EK and read by Dr. Jaime is sinus tachycardia at 118 and no STEMI Radiology/Procedures: Radiology/Procedures: [] Impression: [facility] [address] [place], [place] [id number] IMAGING REPORT Signed PATIENT: BECK URIBECOUNT: [id number] : 1985 LOCATION: ER AGE: 36 SEX: F EXAM STATUS: REG ER ORD. PHYSICIAN: ZAIRA CAMARENA APRN REASON: chest pain, tachycardia PROCEDURE: PORTABLE CHEST 1V Single view chest dated 06/14/2021 11:01 AM: COMPARISON: None Clinical Indication: Chest pain. Findings: Single upright portable exam of the chest was performed. Heart size and mediastinal contours are within normal limits. Lungs are clear. No consolidation or pleural effusion. No pneumothorax. IMPRESSION: No acute radiographic abnormality. Electronically signed by: Gerald Marrero MD (06/14/2021 11:02 AM) [id number] DICTATED and SIGNED BY: GERALD MARRERO MD DATE: 06/14/21 [id number] 0 Course & Med Decision Making: Course & Med Decision Making Pertinent Labs and Imaging studies reviewed. (See chart for details) See HPI. Alert and oriented x4. Ambulatory with steady gait. Speaks in full c lear sentences. Lungs are clear to all station all lobes. No extremity edema. Skin pink warm and dry. She has tachycardia at a heart rate between 107 and in the 130s when she is up and moving. Patient is given 50 mg of metoprolol p.o. in the ED. Potassium is 2.8 and magnesium is 1.7. I have ordered 40 of potassium p.o. and 20 potassium IV. I have ordered her magnesium 2 g IV. Admitted to Hospitalist. [] Dragon Disclaimer: Dimitry Disclaimer: This electronic medical record was generated, in whole or in part, using a voice recognition dictation system. Departure Departure Impression: Primary Impression: Symptomatic tachycardia Additional Impressions: Chest pain Qualified Codes: R07.9 - Chest pain, unspecified Hypokalemia Hypomagnesemia Trichomoniasis of bladder Disposition: ADMITTED INPATIENT Admitting Physician: WILIAM Condition: STABLE Referrals: NO PCP (PCP) ZAIRA CAMARENA APRN Jun 14, 2021 10:56
--- NOTE | 2021-06-14 11:04 | RAD ---
Single view chest dated 06/14/2021 11:01 AM: COMPARISON: None Clinical Indication: Chest pain. Findings: Single upright portable exam of the chest was performed. Heart size and mediastinal contours are with in normal limits. Lungs are clear. No consolidation or pleural effusion. No pneumothorax. IMPRESSION: No acute radiographic abnormality. Electronically signed by: Gerald Martino MD (06/14/2021 11:02 AM) [id number]
[2021-06-14 11:05] LABS: ALBUMIN 3.3 g/dL (3.4-5.0); ALBUMIN/GLOBULIN RATIO 0.8 (1.0-1.7); CALCIUM 7.9 mg/dL (8.5-10.1); CREATININE 0.8 mg/dL (0.6-1.0); GFR 80.3; MAGNESIUM 1.4 mg/dL (1.8-2.4); TOTAL BILIRUBIN 0.6 mg/dL (0.2-1.0); TOTAL PROTEIN 7.7 g/dL (6.4-8.2)
[2021-06-14 11:08] LABS: POTASSIUM 2.8 mmol/L (3.5-5.1)
[2021-06-14] MEDS ORDERED: POTASSIUM CHLORIDE 20MEQ 100 ML IV ONE (11:15)
[2021-06-14] MEDS ORDERED: POTASSIUM CHLORIDE 20 MEQ TABLET.ER. PO ONE (11:15)
[2021-06-14 11:24] LABS: AMPHETAMINE/METHAMPHETAMINE NEG (NEG); BARBITURATES NEG (NEG); BENZODIAZEPINES NEG (NEG); CANNABINOIDS NEG (NEG); COCAINE NEG (NEG); METHADONE NEG (NEG); OPIATES NEG (NEG); PHENCYCLIDINE NEG (NEG)
[2021-06-14] MEDS ORDERED: MAGNESIUM SULFATE 2GM 50 ML IV ONE (11:30)
[2021-06-14 11:34] LABS: BILIRUBIN,URINE NEGATIVE (NEG); CLARITY,URINE CLOUDY; COLOR,URINE YELLOW; NITRITE,URINE NEGATIVE (NEG); PROTEIN,URINE 30 mg/dL (NEG-TRACE); UROBILINOGEN,URINE 0.2 mg/dL (0.2 mg/dL)
[2021-06-14 11:37] LABS: BACTERIA,URINE FEW /HPF (0-FEW); TRICHOMONAS,URINE PRESENT
[2021-06-14] MEDS ORDERED: cefTRIAXone IV Push 1 GM VIAL. IVP ONE (12:15)
[2021-06-14] MEDS ORDERED: metroNIDAZOLE 500 MG TABLET PO ONE (12:15)
[2021-06-14] MEDS ORDERED: hydrALAZINE 20 MG/ML VIAL. IVP PRN (12:30)
[2021-06-14] MEDS ORDERED: ACETAMINOPHEN 325 MG TABLET. PO PRN (12:30)
[2021-06-14] MEDS ORDERED: ONDANSETRON PF 4 MG/2 ML VIAL. IVP PRN (12:30)
--- NOTE | 2021-06-14 12:37 | PDOC1 ---
History and Physical Date of Admission Date of Admission DATE: 06/14/21 TIME: 12:32 Identification/Chief Complaint Chief Complaint Palpitations Source Source: Patient History of Present Illness History of Present Illness Ms Lee is a 36 yo F w/ PMHx SVT, HTN, GERD who presents with palpitations and diarrhea. She has had diarrhea for the last 3 days prior to presentation to the ED. She has not been eating much for the last 2 days she has had a little bit of nausea. No vomiting. Also, it has been 5 days since she ran out of her metoprolol 50 mg twice daily. She states since she has been out she has been having a racing heart beat with shortness of air and some chest tightness. She states that she just got her insurance this past . She was previously seen at [facility] cardiology, but since being out of insurance has usually just comes to the ER and gets medicat ion refills at [facility]. 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 No recent travel or sick contacts. She has not had a vaccine against COVID-19 as she has literally not been able to take a day off of work to do so. She has actively avoided stimulants or anything to cause her tachycardia and previously did know about low potassium was drinking Gatorade but has been instructed at one point to stop drinking Gatorade. WBC 5.4, Hb 12, platelets 321, NA 140, K2.8, BUN 5, CR 0.8, glucose 94, calcium 7.9, magnesium 1.4, bilirubin 0.6, AST 38, ALT 50, alkaline phosphatase 78, high-sensitivity troponin is 7, NT proBNP is 39, albumin is 3.3, TSH 4.195, urine drug screen negative, urinalysis with trichomonas large leukoesterase moderate blood hCG negative. Radiograph no acute abnormalities EKG Sinus tachycardia rate of 118 bpm normal axis and intervals. QTc 434. No ST segment elevations or depressions no TWI. Admitted for further care. Past Medical History Cardiovascular: HTN, Other (SVT) GI: GERD Past Surgical History Past Surgical History: No pertinent history Family History Family History: Hypertension Social History Smoke: No ALCOHOL: social Drugs: None Current Problem List Problem List Problems Medical Problems: (1) Chest pain Status: Acute (2) Hypokalemia Status: Acute (3) Hypomagnesemia Status: Acute (4) Symptomatic tachycardia Status: Acute (5) Trichomoniasis of bladder Status: Acute Current Medications Current Medications Current Medications Aspirin (Griselda Aspirin) 325 mg 1X ONCE PO Last administered on 06/14/21at 10:50; Start 06/14/21 at 10:45; Stop 06/14/21 at 10:46; Status DC Sodium Chloride 1,000 ml @ 1,000 mls/hr Q1H IV Last administered on 06/14/21at 10:49; Start 06/14/21 at 10:30; Stop 06/14/21 at 11:29; Status DC Metoprolol Tartrate (Lopressor) 50 mg 1X ONCE PO Last administered on 06/14/21at 10:50; Start 06/14/21 at 10:45; Stop 06/14/21 at 10:46; Status DC Potassium Chloride (Klor-Con) 40 meq 1X ONCE PO Last administered on 06/14/21at 11:21; Start 06/14/21 at 11:15; Stop 06/14/21 at 11:16; Status DC Potassium Chloride/Water 100 ml @ 50 mls/hr 1X ONCE IV Last administered on 06/14/21at 11:22; Start 06/14/21 at 11:15; Stop 06/14/21 at 13:14 Magnesium Sulfate 50 ml @ 25 mls/hr 1X ONCE IV Last administered on 06/14/21at 11:23; Start 06/14/21 at 11:30; Stop 06/14/21 at 13:29 Ceftriaxone Sodium (Rocephin) 1 gm 1X ONCE IVP ; Start 06/14/21 at 12:15; Stop 06/14/21 at 12:16; Status DC Metronidazole (Flagyl) 2,000 mg 1X ONCE PO ; Start 06/14/21 at 12:15; Stop 06/14/21 at 12:16; Status DC Active Scripts Active Pyridium (Phenazopyridine Hcl) 200 Mg Tablet 1 Tab PO TID 2 Days Cephalexin 500 Mg Tablet 1 Tab PO BID 7 Days Metoprolol Tartrate 50 Mg Tablet 1 Tab PO BID 30 Days Pepcid (Famotidine) 20 Mg Tablet 20 Mg PO BID Silvadene (Silver Sulfadiazine) 20 Gm Cream..g. 1 Will TP BID [place] 5-325 Tablet (Acetaminophen/Hydrocodone Bitart) 1 Each Tablet 1-2 Tab PO Q4-6HRS Reported Atenolol 25 Mg Tablet 25 Mg PO DAILY Allergies Allergies: Coded Allergies: No Known Drug Allergies (Unverified , 10/25/17) ROS General: YES: Fatigue, Malaise; No: Chills, Night Sweats, Appetite, Other PSYCHOLOGICAL ROS: YES: Anxiety; No: Behavioral Disorder, Concentration difficultie, Decreased libido, Depression, Disorientation, Hallucinations, Hostility, Irritablity, Memory difficulties, Mood Swings, Obsessive thoughts, Physical abuse, Sexual abuse, Sl eep disturbances, Suicidal ideation, Other Eyes: No Blurry vision, No Decreased vision, No Double vision, No Dry eyes, No Excessive tearing, No Eye Pain, No Itchy Eyes, No Loss of vision, No Photophobia, No Scotomata, No Uses contacts, No Uses glasses, No Other HEENT: No: Heacaches, Visual Changes, Hearing change, Nasal congestion, Nasal discharge, Oral lesions, Sinus pain, Sore Throat, Epistaxis, Sneezing, Snoring, Tinnitus, Vertigo, Vocal changes, Other ALLERGY AND IMMUNOLOGY: No: Hives, Insect Bite Sensitivity, Itchy/Watery Eyes, Nasal Congestion, Post Nasal Drip, Seasonal Allergies, Other Hematological and Lymphatic: No: Bleeding Problems, Blood Clots, Blood Transfusions, Brusing, Night Sweats, Pallor, Swollen Lymph Nodes, Other ENDOCRINE: No: Breast Changes, Galactorrhea, Hair Pattern Changes, Hot Flashes, Malaise/lethargy, Mood Swings, Palpitations, Polydipsia/polyuria, Skin Changes, Temperature Intolerance, Unexpected Weight Changes, Other Breast: No New/Changing Breast Lumps, No Nipple changes, No Nipple discharge, No Other Respiratory: No: Cough, Hemoptysis, Orthopnea, Pleuritic Pain, Shortness of br eath, SOB with excertion, Sputum Changes, Stridor, Tachypnea, Wheezing, Other Cardiovascular: yes Palpitations; No Chest Pain, No Orthopnea, No Paroxysmal Noc. Dyspnea, No Edema, No Lt Headedness, No Other Gastrointestinal: Yes Nausea, Yes Diarrhea; No Vomiting, No Abdominal Pain, No Constipation, No Melena, No Hematochezia, No Other Genitourinary: No Dysuria, No Frequency, No Incontinence, No Hematuria, No Retention, No Discharge, No Urgency, No Pain, No Flank Pain, No Other, No , No , No , No , No , No , No Musculoskeletal: No Gait Disturbance, No Joint Pain, No Joint Stiffness, No Joint Swelling, No Muscle Pain, No Muscular Weakness, No Pain In:, No Swelling In:, No Other Neurological: No Behavorial Changes, No Bowel/Bladder ControlChng, No Confusion, No Dizziness, No Gait Disturbance, No Headaches, No Impaired Coord/balance, No Memory Loss, No Numbness/Tingling, No Seizures, No Speech Problems, No Tremors, No Visual Changes, No Weakness, No Other Skin: No Dry Skin, No Eczema, No Hair Changes, No Lumps, No Mole Changes, No Mottling, No Nail Changes, No Pruritus, No Rash, No Skin Lesion Changes, No Other, No Acne Physical Exam General: Alert, Oriented X3, Cooperative, mild distress HEENT: Atraumatic, PERRLA, EOMI, Mucous membr. moist/pink Lungs: Clear to auscultation, Normal air movement Heart: S1S2, RRR, no thrills, no rubs, no gallops, no murmurs Abdomen: Normal bowel sounds, Soft, No tenderness, No hepatosplenomegaly, No masses Rectal Exam: not examined Extremities: No clubbing, No cyanosis, No edema, Normal pulses, No tend erness/swelling Skin: No rashes, No breakdown, No significant lesion Neuro: Normal gait, Normal speech, Strength at 5/5 X4 ext, Normal tone, Sensation intact, Cranial nerves 3-12 NL, Reflexes 2+ Psych/Mental Status: Mental status NL, Mood NL Vitals Vitals Vital Signs Date Time Temp Pulse Resp B/P (MAP) Pulse Ox O2 Delivery O2 Flow Rate FiO2 06/14/21 11:33 113 18 97 06/14/21 10:50 140/94 06/14/21 10:22 98.1 Room Air 98.1 Labs Labs Laboratory Tests Test 06/14/21 10:29 06/14/21 10:45 06/14/21 11:01 White Blood Count 5.4 x10^3/uL (4.0-11.0) Red Blood Count 4.40 x10^6/uL (3.50-5.40) Hemoglobin 12.0 g/dL (12.0-15.5) Hematocrit 35.6 % (36.0-47.0) Mean Corpuscular Volume 81 fL (79-100) Mean Corpuscular Hemoglobin 27 pg (25-35) Mean Corpuscular Hemoglobin Concent 34 g/dL (31-37) Red Cell Distribution Width 15.6 % (11.5-14.5) Platelet Count 321 x10^3/uL (140-400) Neutrophils (%) (Auto) 40 % (31-73) Lymphocytes (%) (Auto) 50 % (24-48) Monocytes (%) (Auto) 8 % (0-9) Eosinophils (%) (Auto) 1 % (0-3) Basophils (%) (Auto) 1 % (0-3) Neutrophils # (Auto) 2.2 x10^3/uL (1.8-7.7) Lymphocytes # (Auto) 2.7 x10^3/uL (1.0-4.8) Monocytes # (Auto) 0.4 x10^3/uL (0.0-1.1) Eosinophils # (Auto) 0.1 x10^3/uL (0.0-0.7) Basophils # (Auto) 0.1 x10^3/uL (0.0-0.2) Sodium Level 140 mmol/L (136-145) Potassium Level 2.8 mmol/L (3.5-5.1) Chloride Level 102 mmol/L (98-107) Carbon Dioxide Level 24 mmol/L (21-32) Anion Gap 14 (6-14) Blood Urea Nitrogen 5 mg/dL (7-20) Creatinine 0.8 mg/dL (0.6-1.0) Estimated GFR (Cockcroft-Gault) 80.3 BUN/Creatinine Ratio 6 (6-20) Glucose Level 94 mg/dL (70-99) Calcium Level 7.9 mg/dL (8.5-10.1) Magnesium Level 1.4 mg/dL (1.8-2.4) Total Bilirubin 0.6 mg/dL (0.2-1.0) Aspartate Amino Transf (AST/SGOT) 38 U/L (15-37) Alanine Aminotransferase (ALT/SGPT) 50 U/L (14-59) Alkaline Phosphatase 78 U/L (46-116) Troponin I High Sensitivity 7 ng/L (4-50) XN-Whi-B-Type Natriuretic Peptide 39 pg/mL (0-124) Total Protein 7.7 g/dL (6.4-8.2) Albumin 3.3 g/dL (3.4-5.0) Albumin/Globulin Ratio 0.8 (1.0-1.7) Thyroid Stimulating Hormone (TSH) 4.195 uIU/mL (0.358-3.74) Urine Collection Type Unknown Urine Color Yellow Urine Clarity Cloudy Urine pH 6.0 (<5.0-8.0) Urine Specific [place] 1.015 (1.000-1.030) Urine Protein 30 mg/dL (NEG-TRACE) Urine Glucose (UA) Negative mg/dL (NEG) Urine Ketones (Stick) Negative mg/dL (NEG) Urine Blood Moderate (NEG) Urine Nitrite Negative (NEG) Urine Bilirubin Negative (NEG) Urine Urobilinogen Dipstick 0.2 mg/dL (0.2 mg/dL) Urine Leukocyte Esterase Large (NEG) Urine RBC 1-2 /HPF (0-2) Urine WBC 11-20 /HPF (0-4) Urine Squamous Epithelial Cells Mod /LPF Urine Bacteria Few /HPF (0-FEW) Urine Trichomonas Present Urine Opiates Screen Neg (NEG) Urine Methadone Screen Neg (NEG) Urine Barbiturates Neg (NEG) Urine Phencyclidine Screen Neg (NEG) Urine Amphetamine/Methamphetamine Neg (NEG) Urine Benzodiazepines Screen Neg (NEG) Urine Cocaine Screen Neg (NEG) Urine Cannabinoids Screen Neg (NEG) Urine Ethyl Alcohol Neg (NEG) Bedside Urine HCG, Qualitative Hcg negative (Negative) Laboratory Tests Test 06/14/21 10:29 06/14/21 10:45 06/14/21 11:01 White Blood Count 5.4 x10^3/uL (4.0-11.0) Red Blood Count 4.40 x10^6/uL (3.50-5.40) Hemoglobin 12.0 g/dL (12.0-15.5) Hematocrit 35.6 % (36.0-47.0) Mean Corpuscular Volume 81 fL (79-100) Mean Corpuscular Hemoglobin 27 pg (25-35) Mean Corpuscular Hemoglobin Concent 34 g/dL (31-37) Red Cell Distribution Width 15.6 % (11.5-14.5) Platelet Count 321 x10^3/uL (140-400) Neutrophils (%) (Auto) 40 % (31-73) Lymphocytes (%) (Auto) 50 % (24-48) Monocytes (%) (Auto) 8 % (0-9) Eosinophils (%) (Auto) 1 % (0-3) Basophils (%) (Auto) 1 % (0-3) Neutrophils # (Auto) 2.2 x10^3/uL (1.8-7.7) Lymphocytes # (Auto) 2.7 x10^3/uL (1.0-4.8) Monocytes # (Auto) 0.4 x10^3/uL (0.0-1.1) Eosinophils # (Auto) 0.1 x10^3/uL (0.0-0.7) Basophils # (Auto) 0.1 x10^3/uL (0.0-0.2) Sodium Level 140 mmol/L (136-145) Potassium Level 2.8 mmol/L (3.5-5.1) Chloride Level 102 mmol/L (98-107) Carbon Dioxide Level 24 mmol/L (21-32) Anion Gap 14 (6-14) Blood Urea Nitrogen 5 mg/dL (7-20) Creatinine 0.8 mg/dL (0.6-1.0) Estimated GFR (Cockcroft-Gault) 80.3 BUN/Creatinine Ratio 6 (6-20) Glucose Level 94 mg/dL (70-99) Calcium Level 7.9 mg/dL (8.5-10.1) Magnesium Level 1.4 mg/dL (1.8-2.4) Total Bilirubin 0.6 mg/dL (0.2-1.0) Aspartate Amino Transf (AST/SGOT) 38 U/L (15-37) Alanine Aminotransferase (ALT/SGPT) 50 U/L (14-59) Alkaline Phosphatase 78 U/L (46-116) Troponin I High Sensitivity 7 ng/L (4-50) OA-Cxn-Q-Type Natriuretic Peptide 39 pg/mL (0-124) Total Protein 7.7 g/dL (6.4-8.2) Albumin 3.3 g/dL (3.4-5.0) Albumin/Globulin Ratio 0.8 (1.0-1.7) Thyroid Stimulating Hormone (TSH) 4.195 uIU/mL (0.358-3.74) Urine Collection Type Unknown Urine Color Yellow Urine Clarity Cloudy Urine pH 6.0 (<5.0-8.0) Urine Specific [place] 1.015 (1.000-1.030) Urine Protein 30 mg/dL (NEG-TRACE) Urine Glucose (UA) Negative mg/dL (NEG) Urine Ketones (Stick) Negative mg/dL (NEG) Urine Blood Moderate (NEG) Urine Nitrite Negative (NEG) Urine Bilirubin Negative (NEG) Urine Urobilinogen Dipstick 0.2 mg/dL (0.2 mg/dL) Urine Leukocyte Esterase Large (NEG) Urine RBC 1-2 /HPF (0-2) Urine WBC 11-20 /HPF (0-4) Urine Squamous Epithelial Cells Mod /LPF Urine Bacteria Few /HPF (0-FEW) Urine Trichomonas Present Urine Opiates Screen Neg (NEG) Urine Methadone Screen Neg (NEG) Urine Barbiturates Neg (NEG) Urine Phencyclidine Screen Neg (NEG) Urine Amphetamine/Methamphetamine Neg (NEG) Urine Benzodiazepines Screen Neg (NEG) Urine Cocaine Screen Neg (NEG) Urine Cannabinoids Screen Neg (NEG) Urine Ethyl Alcohol Neg (NEG) Bedside Urine HCG, Qualitative Hcg negative (Negative) Images Images Chest radiograph: Single upright portable exam of the chest was performed. Heart size and mediastinal contours are within normal limits. Lungs are clear. No consolidation or pleural effusion. No pneumothorax. IMPRESSION: No acute radiographic abnormality. VTE Prophylaxis Ordered VTE Prophylaxis Devices: No VTE Pharmacological Prophylaxi: No Assessment/Plan Assessment/Plan A/P: Chest pain -with palpitations likely due to tachycardia from beta-madelyn withdrawal. Will reinitiate her home metoprolol. Repeat one troponin maintain on telemetry. Cardiology consulted Hypokalemia -likely from diarrhea will replace monitor. Hypomagnesemia - likely from diarrhea. Replace and monitor. Diarrhea - no sick contacts, will check stool for c. 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 GERD - cont H2 madelyn HTN - cont metoprolol. PRN IV for tachycardia, prn IV hydralazine for elevated BP Trichomoniasis - metronidazole PO. FEN - Regular diet PPX - ambulatory FULL CODE Dispo - inpatient Justifications for Admission Other Justification RIFFEL,CHRISTOPHER S MD Jun 14, 2021 12:37
[2021-06-14] MEDS: METOPROLOL TART IMMED RELEASE 50 MG TABLET. PO SCH ×2 (13:05→20:42)
[2021-06-14 13:45] VITALS: BP 170/94
--- NOTE | 2021-06-14 13:47 | EKG ---
[facility] [address] [place] [address] Test Date: 2021-06-14 Test Time: 10:26:38 Pat Name: BECK URIBE Department: Room: 512 Gender: F Diagnostic Assistant: : 1985 Requested By: TAWNY JACKSON Order Number: [id number] Reading MD: Jono Gann Measurements Intervals [place] Rate: 118 P: 51 TX: 124 QRS: 26 QRSD: 74 T: 1 QT: 308 QTc: 434 Interpretive Statements SINUS TACHYCARDIA NON SPECIFIC ST-T WAVE CHANGES Electronically Signed On 06-15-2021 11:43:49 MEDICINE AND HEALTH SERVICE MANAGER by Jono Gann
[2021-06-14] MEDS ORDERED: MAGNESIUM SULFATE 4GM 100 ML IV ONE (14:00)
[2021-06-14] MEDS ORDERED: POTASSIUM CL 40MEQ D5-0.45NACL 1,000 ML IV ONE (14:00)
[2021-06-14 15:00] VITALS: BP 147/78
[2021-06-14] MEDS ORDERED: METOPROLOL IV PUSH 5 MG/5 ML VIAL. IVP PRN (15:00)
[2021-06-14 19:00] VITALS: BP 132/78
[2021-06-14] MEDS: FAMOTIDINE 20 MG TABLET. PO SCH (20:44)
[2021-06-14 23:00] VITALS: BP 122/76
[2021-06-15 03:00] VITALS: BP 140/86
[2021-06-15] MEDS: metroNIDAZOLE 500 MG TABLET PO SCH ×2 (05:54→14:28)
[2021-06-15 07:00] VITALS: BP 131/75
[2021-06-15 07:27] LABS: CALCIUM 7.4 mg/dL (8.5-10.1); CREATININE 0.6 mg/dL (0.6-1.0); GFR 111.9; POTASSIUM 3.9 mmol/L (3.5-5.1)
[2021-06-15] MEDS: METOPROLOL TART IMMED RELEASE 50 MG TABLET. PO SCH (07:57)
[2021-06-15] MEDS: FAMOTIDINE 20 MG TABLET. PO SCH (07:57)
[2021-06-15] MEDS ORDERED: METR-34 PO (10:58)
[2021-06-15 11:00] VITALS: BP 128/80
--- NOTE | 2021-06-15 11:46 | NUR ---
SW following. Discussed with RN, pt from home, room air, cardiac diet. Discharge order for home with self care. RN advised no SW needs.
--- NOTE | 2021-06-15 12:12 | PDOC2 ---
FREDO LOPEZ SHELLI 06/15/21 1212: CARDIAC CONSULT DATE OF CONSULT Date of Consult DATE: 06/15/21 TIME: 12:07 REASON FOR CONSULT Reason for Consult: symptomatic tachycardia REFERRING PHYSICIAN Referring Physician: Sandra Keys APRN SOURCE Source: Chart review, Patient HISTORY OF PRESENT ILLNESS HISTORY OF PRESENT ILLNESS This is a 36 yo female who presented secondary to palpitations. Patient has a history of SVT and innapropriate sinus tachycardia. Previously follow with cardiology and has been seen by EP. Reports ablation therapy has been discussed. Unfortunately, patient has been lost to followup due to lack of insurance coverage. She has been out of her metoprolol x5 and has been experiencing pa lpitations. [place] like her heart has been racing. Associated with lightheadedness. No nausea/vomiting. Has not had much to eat the last couple of days. Was dehydrated. Was noted in ST upon arrival. Potassiums and Magnesium also significantly low. These were replaced. Metoprolol was resumed and HR now controlled. Is feeling well and would like to go home. She fortunately has insurance coverage now, but is not in network for her plan. PAST MEDICAL HISTORY Cardiovascular: HTN, Other (SVT, innapropriate ST ) GI: GERD PAST SURGICAL HISTORY Past Surgical History: No pertinent history FAMILY HISTORY Family History: Hypertension SOCIAL HISTORY Smoke: No ALCOHOL: none Lives: with Family CURRENT MEDICATIONS CURRENT MEDICATIONS Current Medications Medications (Trade) Dose Ordered Sig/Anne-Marie Route PRN Reason Start Time Stop Time Status Last Admin Dose Admin Ceftriaxone Sodium (Rocephin) 1 gm 1X ONCE IVP 06/14/21 12:15 06/14/21 12:16 DC 06/14/21 12:45 Metronidazole (Flagyl) 2,000 mg 1X ONCE PO 06/14/21 12:15 06/14/21 12:16 DC 06/14/21 12:45 Magnesium Sulfate 100 ml @ 25 mls/hr 1X ONCE IV 06/14/21 14:00 06/14/21 17:59 DC 06/14/21 12:57 Famotidine (Pepcid) 20 mg BID PO 06/14/21 21:00 06/15/21 07:57 Metoprolol Tartrate (Lopressor) 50 mg BID PO 06/14/21 12:30 06/15/21 07:57 Hydralazine HCl (Apresoline Inj) 10 mg PRN Q4HRS PRN IVP ELEVATED BP, SEE COMMENTS 06/14/21 12:30 06/14/21 14:24 Potassium Chloride/Dextrose/ Sod Cl 1,000 ml @ 80 mls/hr [id number] ONCE IV 06/14/21 14:00 06/15/21 02:29 DC 06/14/21 12:53 Metronidazole (Flagyl) 500 mg Q8HRS PO 06/15/21 06:00 06/15/21 05:54 ALLERGIES ALLERGIES: Coded Allergies: No Known Drug Allergies (Unverified , 10/25/17) ROS Review of System 14 point ROS conducted with pertinent positives noted above in HPI PHYSICAL EXAM General: Alert, Oriented X3, Cooperative, No acute distress HEENT: Atraumatic, Mucous membr. moist/pink Lungs: Clear to auscultation Heart: Regular rate Abdomen: Soft, No tenderness Extremities: No edema, Normal pulses Skin: No breakdown, No significant lesion Neuro: Normal speech, Sensation intact Psych/Mental Status: Mental status NL, Mood NL MUSCULOSKELETAL: No deformity VITALS/I&O VITALS/I&O: Vital Signs Date Time Temp Pulse Resp B/P (MAP) Pulse Ox O2 Delivery O2 Flow Rate FiO2 06/15/21 11:00 98.3 101 19 128/80 (96) 98 Room Air 98.3 I & O 06/14/21 06/14/21 06/15/21 15:00 23:00 07:00 Intake Total 1050 ml 700 ml Balance 1050 ml 700 ml LABS Lab: Laboratory Tests Test 06/14/21 13:15 06/14/21 16:00 06/15/21 06:25 Troponin I High Sensitivity 6 ng/L (4-50) 4 ng/L (4-50) Sodium Level 141 mmol/L (136-145) Potassium Level 3.9 mmol/L (3.5-5.1) # Chloride Level 107 mmol/L (98-107) Carbon Dioxide Level 23 mmol/L (21-32) Anion Gap 11 (6-14) Blood Urea Nitrogen 4 mg/dL (7-20) L Creatinine 0.6 mg/dL (0.6-1.0) Estimated GFR (Cockcroft-Gault) 111.9 Glucose Level 115 mg/dL (70-99) H Calcium Level 7.4 mg/dL (8.5-10.1) L Magnesium Level 2.4 mg/dL (1.8-2.4) Laboratory Tests 06/15/21 06:25 ECHOCARDIOGRAM ECHOCARDIOGRAM 02/21/17 - 2-D + DOPPLER ECHOCARDIOGRAM Interpretation Summary Rest Echo: Overall left ventricular systolic function is normal. EF~ 60% No regional wall motion abnormalities identified Valves appear structurally normal without signficant stenosis or regurgitation No significant pericardial effusion Normal chamber dimensions Normal LV wall thickness Normal diastolic function Normal aortic root dimensions Estimated peak systolic PA pressure = 21 mmHg ASSESSMENT/PLAN ASSESSMENT/PLAN 1. Tachycardia; SKG shows ST with rate 124. resolved following resumption of metoprolol 2. H/o SVT and innapropriate sinus tachycardia. Previously followed at and as seen EP, but lost in followup due to lack of insurance. Ablation therapy has been previously discussed. Now has insurance, but reportedly not in-network 3. Hypokalemia, hypomagnesemia; replaced 4. Hypertension; controlled 5. Hypothyroidism; as per IM 6. ETOH misuse; discussed reducing consumption Recommendations Continue metoprolol Will need to establish cardiology Follow up in our office with Dr. Holland as scheduled Consider outpatient referral to EP Supportive care JUANPABLO HOLLAND MD 06/15/21 1605: CARDIAC CONSULT ASSESSMENT/PLAN ASSESSMENT/PLAN Patient seen and examined. 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 Sinus tachycardia, probably inappropriate sinus tachycardia, rate better controlled with beta-blockers. Potassium and magnesium levels replaced. Will consider outpatient referral to EP service Importance of abstinence from alcohol abuse reemphasized Thank you for your consultation FREDO LOPEZ APRN Jun 15, 2021 12:12 JUANPABLO HOLLAND MD Jun 15, 2021 16:05
--- NOTE | 2021-06-15 13:05 | DS ---
DATE OF DISCHARGE: 06/15/2021 ADMITTING DIAGNOSES: Chest discomfort, palpitations, hypokalemia, hypomagnesemia, tachycardia, diarrhea. DISCHARGE DIAGNOSES: Resolving atypical chest pain, resolving hypokalemia, resolving hypomagnesemia, resolving diarrhea, gastroesophageal reflux disease, hypertension, and incidental finding of Trichomonas. Resolving Trichomonas infection and also resolving probable gastroenteritis causing the diarrhea. CONSULTS: Cardiology. PROCEDURES: None. HOSPITAL COURSE: The patient is a pleasant, middle-aged female who presented with loose stools and some chest pain. She was noted to have tachycardia. We noticed that her potassium and magnesium were low. She was admitted. We replaced her electrolytes. Today, I saw and examined her. She is doing well. She states her stools are normal again. She feels great, wants to go home. She is going to be seen by Cardiology this afternoon, but if okay with them, I plan to discharge. DISPOSITION: Home. ACTIVITY: As tolerated. DIET: Low sodium. DISCHARGE MEDICATIONS: Please see the MRAD. Medications will be metronidazole 500 p.o. q. 8 hours for a week, atenolol 25 a day, Keflex 500 b.i.d., famotidine 20 b.i.d., p.r.n. [place], metoprolol 25 b.i.d., Pyridium p.r.n. and Silvadene b.i.d. TOTAL TIME: 32 minutes. YOLA/ALEXANDR DR: DENICE/chiquita TID: [id number]
--- NOTE | 2021-06-15 15:34 | NUR ---
Discharge Note: BECK URIBE Discharge instructions and discharge home medications reviewed with Patient and a copy given. All questions have been answered and understanding verbalized. Script also called into [facility] for Metoprolol 50mg BID x's 30 days that was called in by this RN. The following instructions and handouts were given: Worsening symptoms, follow up information, including scheduled cardiology appointment, and medications. Discontinued lines and drains: IV discontinued from L[facility], skin intact. Patient discharged to home by self via private transportation.
== END 2021-06-15 15:00 | disposition home or self-care (01) | DRG 392 ==
LOC: ER 10:16 → 5 NORTH 12:00
PROVIDERS: ADMIT Internal Medicine; ATTEND Internal Medicine
DX: K52.9 Noninfective gastroenteritis and colitis, unspecified (principal); A59.9 Trichomoniasis, unspecified; R07.89 Other chest pain; R00.0 Tachycardia, unspecified; E03.9 Hypothyroidism, unspecified; E83.42 Hypomagnesemia; E86.0 Dehydration; E87.6 Hypokalemia; I10 Essential (primary) hypertension; I48.91 Unspecified atrial fibrillation; K21.9 Gastro-esophageal reflux disease without esophagitis; Z79.899 Other long term (current) drug therapy; Z82.49 Family history of ischemic heart disease and other diseases of the circulatory system
CPT/HCPCS: 36415; 71045; 80048; 80053; 80307; 81001; 81025; 83735; 83880; 84439; 84443; 84481; 84484; 85025; 87086; 87147; 87491; 87493; 87505; 87591; 93005; 96361; 96365; 96367; 96368; 96375; J0360; J0696; J3475; J3480; J7030; 99285-25; G0378